=== PATIENT | male | born 1985 | race Two or more races ===

== ENCOUNTER 2016-09-10 01:44 | Emergency (ER) | payer OTHER ==
[~2016-09-10 01:44] MED LIST: MOTRIN400 MG PO; NOHOMEMEDS; PEPCID40 MG PO; ULTRAM50 MG PO; ZOFRAN4 MG PO
== END 2016-09-10 02:51 | disposition left against medical advice (07) ==
LOC: EME 01:44
DX: R20.8 Other disturbances of skin sensation (principal); Z53.21 Procedure and treatment not carried out due to patient leaving prior to being seen by health care provider

== ENCOUNTER 2016-09-12 04:32 | Emergency (ER) | payer OTHER ==
[~2016-09-12] VITALS: Ht 170.2 cm; Wt 79.6 kg
[2016-09-12] MEDS ORDERED: NAPROSYN500 MG PO (04:52)
[2016-09-12] MEDS ORDERED: KEFLEX500 MG PO (04:52)
[2016-09-12 05:17] VITALS: BP 121/79
== END 2016-09-12 05:21 | disposition home or self-care (01) ==
LOC: EME 04:32
DX: T25.211A Burn of second degree of right ankle, initial encounter (principal); L03.115 Cellulitis of right lower limb; X08.8XXA Exposure to other specified smoke, fire and flames, initial encounter
CPT/HCPCS: 99281; 99283

== ENCOUNTER 2016-09-22 14:57 | Inpatient (IN) | payer OTHER ==
[~2016-09-22] VITALS: Ht 170.2 cm; Wt 79.8 kg
[~2016-09-22 14:57] MED LIST changes: +KEFLEX500 MG PO; +NAPROSYN500 MG PO
[2016-09-22 18:42] LABS: HEMATOCRIT 39.5 % (38.0-50.0); MCH 28.4 PG (29.0-34.0); MCHC 32.9 G/DL (30.0-36.0); MCV 86.4 FL (86-99); MEAN PLAT.VOLUME 9.7 uM^3 (9.0-12.4); PLATELET COUNT 284 K/uL (156-360); RBC DIS.WIDTH-CV 13.9 % (11.8-14.6); RBC DIS.WIDTH-SD 43.8 % (39-53); RED BLOOD COUNT 4.57 M/uL (4.00-5.50); WHITE BLOOD COUNT 9.5 K/uL (4.1-10.2)
[2016-09-22 18:50] LABS: CHLORIDE 105 mEq/L (99-109); POTASSIUM 4.3 mEq/L (3.7-5.4); SODIUM 141 mEq/L (136-147)
[2016-09-22 18:52] LABS: GLUCOSE 108 mg/dL (70-99)
[2016-09-22 18:53] LABS: ANION GAP 7 MEQ/L (2-14)
[2016-09-22 18:56] LABS: GFR ESTIMATE (CALCULATED) > 59 mL/min/
[2016-09-22 18:57] LABS: UREA NITROGEN (BUN) 10 mg/dL (9-23)
[2016-09-22 23:30] VITALS: BP 108/55
[2016-09-23] VITALS (7 sets, daily range): BP systolic 102–130; BP diastolic 55–75
[2016-09-23 06:46] LABS: MCH 27.8 PG (29.0-34.0); MCHC 32.4 G/DL (30.0-36.0); MCV 85.6 FL (86-99); MEAN PLAT.VOLUME 9.8 uM^3 (9.0-12.4); PLATELET COUNT 291 K/uL (156-360); RBC DIS.WIDTH-CV 13.9 % (11.8-14.6); RBC DIS.WIDTH-SD 43.4 % (39-53); RED BLOOD COUNT 4.79 M/uL (4.00-5.50); WHITE BLOOD COUNT 9.6 K/uL (4.1-10.2)
[2016-09-23 14:24] LABS: AMPHETAMINES QUANT VALUE 0 NG/ML; BARBITUATES QUANT VALUE 0 NG/ML; BENZODIAZEPINES QUANT VALUE 0 NG/ML; BENZODIAZEPINES, URINE SCREEN Negative (200 ng/mL); MARIJUANA QUANT VALUE 0 NG/ML; PHENCYCLIDINE QUANT VALUE 0 NG/ML
[2016-09-24 05:11] VITALS: BP 104/61
[2016-09-24 07:25] VITALS: BP 116/56
[2016-09-24 10:54] VITALS: BP 101/62
== END 2016-09-24 15:43 | disposition left against medical advice (07) | DRG 935 ==
LOC: EME 14:57 → 3EAST 20:29 → EDOF 20:29 → 3EAST 22:43
PROVIDERS: Internal Medicine; Nurse Practitioner Family
DX: T25.221A Burn of second degree of right foot, initial encounter (principal); L03.115 Cellulitis of right lower limb; R63.0 Anorexia; B95.8 Unspecified staphylococcus as the cause of diseases classified elsewhere; T25.221S Burn of second degree of right foot, sequela; X08.8XXS Exposure to other specified smoke, fire and flames, sequela; F17.210 Nicotine dependence, cigarettes, uncomplicated; F43.23 Adjustment disorder with mixed anxiety and depressed mood; F43.29 Adjustment disorder with other symptoms; S20.211A Contusion of right front wall of thorax, initial encounter; W19.XXXA Unspecified fall, initial encounter; M54.9 Dorsalgia, unspecified; F19.99 Other psychoactive substance use, unspecified with unspecified psychoactive substance-induced disorder; F43.21 Adjustment disorder with depressed mood
CPT/HCPCS: 71101; 80048; 80306 90; 83605; 85027; 87040; 87070; 87075; 87077; 87147; 87186; 87205; 99281; 99285; J1644; J2543; J7050

== ENCOUNTER 2016-09-28 00:51 | Emergency (ER) | payer OTHER | END 2016-09-28 01:30 | disposition left against medical advice (07) | LOC: EME 00:51 | DX: M79.604 Pain in right leg (principal); R07.81 Pleurodynia; Z91.81 History of falling; Z53.21 Procedure and treatment not carried out due to patient leaving prior to being seen by health care provider ==

== ENCOUNTER 2017-04-08 09:04 | Emergency (ER) | payer OTHER ==
[~2017-04-08] VITALS: Ht 170.2 cm; Wt 90.4 kg
[2017-04-08] MEDS ORDERED: PERCOCET 5/31 TABLET PO (10:58)
[2017-04-08 11:23] VITALS: BP 126/81
== END 2017-04-08 11:26 | disposition home or self-care (01) ==
LOC: EME 09:04
DX: S42.002A Fracture of unspecified part of left clavicle, initial encounter for closed fracture (principal); V00.311A Fall from snowboard, initial encounter; Y93.23 Activity, snow (alpine) (downhill) skiing, snowboarding, sledding, tobogganing and snow tubing; F17.200 Nicotine dependence, unspecified, uncomplicated
CPT/HCPCS: 73030; 99281; 99284

== ENCOUNTER 2017-04-10 15:23 | Emergency (ER) | payer OTHER ==
[~2017-04-10] VITALS: Ht 170.2 cm; Wt 92.5 kg
[~2017-04-10 15:23] MED LIST changes: +PERCOCET 5/31 TABLET PO
[2017-04-10] MEDS ORDERED: ZOFRAN ODT8 MG PO (18:45)
[2017-04-10] MEDS ORDERED: PERCOCET 5/31 TABLET PO (18:55)
[2017-04-10 19:04] VITALS: BP 128/84
== END 2017-04-10 19:04 | disposition home or self-care (01) ==
LOC: EME 15:23
DX: S20.212A Contusion of left front wall of thorax, initial encounter (principal); S42.002D Fracture of unspecified part of left clavicle, subsequent encounter for fracture with routine healing; V00.318D Other snowboard accident, subsequent encounter; Y93.23 Activity, snow (alpine) (downhill) skiing, snowboarding, sledding, tobogganing and snow tubing; F17.200 Nicotine dependence, unspecified, uncomplicated
CPT/HCPCS: 71046; 99281; 99284

== ENCOUNTER 2017-04-13 19:12 | Emergency (ER) | payer OTHER ==
[~2017-04-13] VITALS: Ht 170.2 cm; Wt 90.0 kg
[~2017-04-13 19:12] MED LIST changes: +ZOFRAN ODT8 MG PO
[2017-04-13] MEDS ORDERED: NAPROSYN500 MG PO (23:13)
[2017-04-13] MEDS ORDERED: ULTRAM50 MG PO (23:13)
[2017-04-13] MEDS ORDERED: LIDODERM 5% P1 PATCH TD (23:16)
[2017-04-13 23:29] VITALS: BP 134/75
== END 2017-04-13 23:32 | disposition home or self-care (01) ==
LOC: EME 19:12
DX: S22.32XA Fracture of one rib, left side, initial encounter for closed fracture (principal); R51 Headache; M25.512 Pain in left shoulder; S42.002D Fracture of unspecified part of left clavicle, subsequent encounter for fracture with routine healing; X58.XXXA Exposure to other specified factors, initial encounter; Y93.23 Activity, snow (alpine) (downhill) skiing, snowboarding, sledding, tobogganing and snow tubing
CPT/HCPCS: 70450; 71250; 99281; 99283

== ENCOUNTER 2017-04-28 10:56 | Emergency (ER) | payer OTHER ==
[~2017-04-28] VITALS: Ht 170.2 cm; Wt 92.4 kg
[~2017-04-28 10:56] MED LIST changes: +LIDODERM 5% P1 PATCH TD
[2017-04-28 12:08] LABS: HEMOGLOBIN 17.3 G/DL (12.5-16.6); MCH 30.8 PG (29.0-34.0); MCV 85.4 FL (86-99); PLATELET COUNT 266 K/uL (156-360); RBC DIS.WIDTH-SD 39.9 % (39-53); RED BLOOD COUNT 5.62 M/uL (4.00-5.50); WHITE BLOOD COUNT 9.8 K/uL (4.1-10.2)
[2017-04-28 12:18] LABS: CHLORIDE 109 mEq/L (99-109); POTASSIUM 4.3 mEq/L (3.7-5.4); SODIUM 140 mEq/L (136-147)
[2017-04-28 12:20] LABS: GLUCOSE 89 mg/dL (70-99)
[2017-04-28 12:24] LABS: CREATININE 0.8 mg/dL (0.6-1.3); GFR ESTIMATE (CALCULATED) > 59 mL/min/ (58.99-99999)
[2017-04-28 12:25] LABS: UREA NITROGEN (BUN) 18 mg/dL (9-23)
[2017-04-28] MEDS ORDERED: FIORICET 50-301 EAC1 PO (12:39)
[2017-04-28] MEDS ORDERED: VALIUM5 MG PO (12:39)
[2017-04-28 13:00] VITALS: BP 132/76
== END 2017-04-28 13:00 | disposition home or self-care (01) ==
LOC: EME 10:56
PROVIDERS: Nurse Practitioner Family
DX: G43.909 Migraine, unspecified, not intractable, without status migrainosus (principal); S42.022D Displaced fracture of shaft of left clavicle, subsequent encounter for fracture with routine healing; W18.30XD Fall on same level, unspecified, subsequent encounter; Y93.23 Activity, snow (alpine) (downhill) skiing, snowboarding, sledding, tobogganing and snow tubing
CPT/HCPCS: 73000; 80048; 85027; 99281; 99284; J1885

== ENCOUNTER 2017-05-18 15:51 | Emergency (ER) | payer OTHER ==
[~2017-05-18] VITALS: Ht 170.2 cm; Wt 93.2 kg
[~2017-05-18 15:51] MED LIST changes: +FIORICET 50-301 EAC1 PO; +VALIUM5 MG PO
[2017-05-18] MEDS ORDERED: NAPROSYN500 MG PO (17:29)
[2017-05-18] MEDS ORDERED: PERCOCET 5/31 TABLET PO (17:29)
[2017-05-18 17:41] VITALS: BP 132/77
== END 2017-05-18 17:41 | disposition home or self-care (01) ==
LOC: EME 15:51
DX: M25.512 Pain in left shoulder (principal); F17.200 Nicotine dependence, unspecified, uncomplicated
CPT/HCPCS: 99281; 99283

== ENCOUNTER 2017-07-23 16:13 | Emergency (ER) | payer OTHER ==
[~2017-07-23] VITALS: Ht 170.2 cm; Wt 85.6 kg
[2017-07-23 16:15] VITALS: BP 111/85
[2017-07-23] MEDS ORDERED: MOTRIN600 MG PO (17:37)
== END 2017-07-23 17:46 | disposition home or self-care (01) ==
LOC: EME 16:13
DX: M25.512 Pain in left shoulder (principal); W06.XXXA Fall from bed, initial encounter
CPT/HCPCS: 73000; 99281; 99282

== ENCOUNTER 2017-09-14 13:41 | Emergency (ER) | payer OTHER ==
[~2017-09-14] VITALS: Ht 170.2 cm; Wt 81.0 kg
[~2017-09-14 13:41] MED LIST changes: +MOTRIN600 MG PO
[2017-09-14 14:59] LABS: HEMATOCRIT 46.8 % (38.0-50.0); HEMOGLOBIN 16.1 G/DL (12.5-16.6); MCH 30.6 PG (29.0-34.0); MCHC 34.4 G/DL (30.0-36.0); MCV 88.8 FL (86-99); PLATELET COUNT 248 K/uL (156-360); RBC DIS.WIDTH-CV 13.2 % (11.8-14.6); RBC DIS.WIDTH-SD 43.4 % (39-53); RED BLOOD COUNT 5.27 M/uL (4.00-5.50); WHITE BLOOD COUNT 13.5 K/uL (4.1-10.2)
[2017-09-14 15:10] LABS: ALBUMIN 4.1 g/dL (3.2-4.8)
[2017-09-14 15:11] LABS: CHLORIDE 104 mEq/L (99-109); POTASSIUM 4.3 mEq/L (3.7-5.4); SODIUM 138 mEq/L (136-147)
[2017-09-14] MEDS ORDERED: ULTRAM50 MG PO (15:11)
[2017-09-14] MEDS ORDERED: NAPROSYN500 MG PO (15:11)
[2017-09-14 15:13] LABS: GLUCOSE 98 mg/dL (70-99); TOTAL PROTEIN 7.2 g/dL (6.4-8.3)
[2017-09-14 15:15] LABS: TOTAL BILIRUBIN 0.4 mg/dL (0.0-1.0)
[2017-09-14 15:16] LABS: ALKALINE PHOSPHATASE 114 IU/L (3-129)
[2017-09-14 15:17] LABS: CREATININE 0.8 mg/dL (0.6-1.3); GFR ESTIMATE (CALCULATED) > 59 mL/min/ (58.99-99999)
[2017-09-14 15:18] LABS: AST (GOT) 35 IU/L (2-34); UREA NITROGEN (BUN) 12 mg/dL (9-23)
[2017-09-14 15:20] LABS: ALT (GPT) 50 IU/L (3-49)
[2017-09-14 15:36] VITALS: BP 123/72
== END 2017-09-14 15:44 | disposition home or self-care (01) ==
LOC: EME 13:41
PROVIDERS: Nurse Practitioner Family
PROC: 0HQ1XZZ Repair Face Skin, External Approach (ICD-10-PCS; principal; 2017-09-14)
DX: S20.212A Contusion of left front wall of thorax, initial encounter (principal); S01.111A Laceration without foreign body of right eyelid and periocular area, initial encounter; W10.9XXA Fall (on) (from) unspecified stairs and steps, initial encounter; F17.200 Nicotine dependence, unspecified, uncomplicated
CPT/HCPCS: 70450; 71046; 80053; 85027; 99281; 99284; J1885

== ENCOUNTER 2017-09-23 00:22 | Emergency (ER) | payer OTHER ==
[~2017-09-23] VITALS: Ht 170.2 cm; Wt 80.4 kg
[2017-09-23 01:28] LABS: BASOPHIL (%) 0.3 % (0-1); EOSINOPHIL (%) 1.6 % (0-5); EOSINOPHIL COUNT 0.2 K/uL (0-0.3); HEMOGLOBIN 15.2 G/DL (12.5-16.6); IMMATURE GRANULOCYTE (%) 0.4 % (0.0-0.7); LYMPHOCYTE COUNT 1.7 K/uL (1.0-2.8); MCH 30.5 PG (29.0-34.0); MCHC 35.3 G/DL (30.0-36.0); MCV 86.3 FL (86-99); MONOCYTE COUNT 0.7 K/uL (0-0.8); NEUTROPHIL (%) 80.7 % (45-76); NEUTROPHIL COUNT 11.4 K/uL (1.8-6.4); PLATELET COUNT 246 K/uL (156-360); RBC DIS.WIDTH-SD 40.5 % (39-53); RED BLOOD COUNT 4.98 M/uL (4.00-5.50); WHITE BLOOD COUNT 14.2 K/uL (4.1-10.2)
[2017-09-23 01:36] LABS: CHLORIDE 108 mEq/L (99-109); POTASSIUM 3.9 mEq/L (3.7-5.4); SODIUM 139 mEq/L (136-147)
[2017-09-23 01:38] LABS: GLUCOSE 133 mg/dL (70-99)
[2017-09-23 01:42] LABS: GFR ESTIMATE (CALCULATED) > 59 mL/min/ (58.99-99999)
[2017-09-23 01:43] LABS: UREA NITROGEN (BUN) 14 mg/dL (9-23)
[2017-09-23 02:11] LABS: APPEARANCE SL.HAZY ((CLEAR)); BILIRUBIN NEGATIVE; BLOOD NEGATIVE; COLOR YELLOW ((YELLOW)); GLUCOSE (STRIP) NEGATIVE; KETONES 5; LEUKOCYTES NEGATIVE; NITRITE NEGATIVE; PROTEIN (STRIP) 30; SPECIFIC GRAVITY 1.028 (1.000-1.030)
[2017-09-23 02:19] LABS: BACTERIA NONE SEEN /HPF; EPITHELIAL CELLS RARE /HPF; MUCUS 3+ /LPF; UCUL ADDED? NO; WHITE BLOOD CELLS 0-5 /HPF (0-5)
[2017-09-23 02:27] VITALS: BP 112/61
== END 2017-09-23 02:27 | disposition left against medical advice (07) ==
LOC: EME 00:22
PROVIDERS: Emergency Medicine
DX: Z48.02 Encounter for removal of sutures (principal); R10.9 Unspecified abdominal pain; F17.200 Nicotine dependence, unspecified, uncomplicated
CPT/HCPCS: 76770; 80048; 81003; 85025; 99281; 99284; J1885

== ENCOUNTER 2017-10-15 00:34 | Emergency (ER) | payer OTHER ==
[~2017-10-15] VITALS: Ht 170.2 cm; Wt 76.3 kg
[2017-10-15 01:16] LABS: HEMATOCRIT 39.7 % (38.0-50.0); HEMOGLOBIN 14.3 G/DL (12.5-16.6); MCH 30.2 PG (29.0-34.0); MCV 83.9 FL (86-99); PLATELET COUNT 265 K/uL (156-360); RBC DIS.WIDTH-CV 12.1 % (11.8-14.6); RED BLOOD COUNT 4.73 M/uL (4.00-5.50); WHITE BLOOD COUNT 11.6 K/uL (4.1-10.2)
[2017-10-15 01:26] LABS: CHLORIDE 105 mEq/L (99-109); POTASSIUM 3.6 mEq/L (3.7-5.4); SODIUM 137 mEq/L (136-147)
[2017-10-15 01:27] LABS: GLUCOSE 102 mg/dL (70-99)
[2017-10-15 01:31] LABS: GFR ESTIMATE (CALCULATED) > 59 mL/min/ (58.99-99999)
[2017-10-15 01:32] LABS: UREA NITROGEN (BUN) 19 mg/dL (9-23)
[2017-10-15 03:12] LABS: APPEARANCE CLEAR ((CLEAR)); BILIRUBIN NEGATIVE; BLOOD NEGATIVE; COLOR YELLOW ((YELLOW)); GLUCOSE (STRIP) NEGATIVE; KETONES 20; LEUKOCYTES NEGATIVE; NITRITE NEGATIVE; PROTEIN (STRIP) 30; SPECIFIC GRAVITY 1.034 (1.000-1.030); UCUL ADDED? NO
[2017-10-15 03:37] LABS: AMPHETAMINE PRESUMPTIVE POSITIVE (500 ng/mL); BARBITURATES NEGATIVE (200 ng/mL); BENZODIAZEPINES NEGATIVE (150 ng/mL); BUPRENORPHINE NEGATIVE (10 ng/mL); COCAINE PRESUMPTIVE POSITIVE (150 ng/mL); METHADONE NEGATIVE (200 ng/mL); METHAMPHETAMINE PRESUMPTIVE POSITIVE (500 ng/mL); OPIATES (MORPHINE) NEGATIVE (100 ng/mL); OXYCODONE NEGATIVE (100 ng/mL); PHENCYCLIDINE NEGATIVE (25 ng/mL); PROPOXYPHENE NEGATIVE (300 ng/mL); THC CANNABINOIDS NEGATIVE (50 ng/mL); TRICYCLIC ANTIDEPRESSANTS NEGATIVE (300 ng/mL)
[2017-10-15 08:21] VITALS: BP 118/64
== END 2017-10-15 08:22 | disposition home or self-care (01) ==
LOC: EME → EDBD 00:34 → EME 08:22
PROVIDERS: Emergency Medicine
DX: M54.9 Dorsalgia, unspecified (principal); F19.10 Other psychoactive substance abuse, uncomplicated; F17.200 Nicotine dependence, unspecified, uncomplicated; Z87.442 Personal history of urinary calculi
CPT/HCPCS: 74176; 80048; 81003; 84999; 85027